=== PATIENT | female | born 1950 | race Caucasian/White ===

== ENCOUNTER 2016-11-29 19:24 | Emergency (ER) | payer OTHER, MEDICAID ==
[~2016-11-29] VITALS: Ht 152.4 cm; Wt 95.3 kg
[2016-11-29 19:35] VITALS: BP 115/67; PULSE 78; RESP 16; TEMP 97.5; O2SAT 98
--- NOTE | 2016-11-29 20:21 | NUR ---
Placed in room 07 . Placed on patient monitor, blood pressure machine and pulse oximeter. To gown for exam. Side rails up. Report given to SVEN Eason.
--- NOTE | 2016-11-29 21:00 | NUR ---
Dr. Alba at bedside examinig the pt.
--- NOTE | 2016-11-29 21:10 | NUR ---
Pt. to ER [facility] from home presented with chronic knee pain, c/o pain to right knee 2 at this time denies injury or trauma, states pain increases occasionally while in resting position, FROM of the affected extremity, no swelling redness or warmth noted
[2016-11-29 21:25] VITALS: BP 121/67; PULSE 78; RESP 15; TEMP 98; O2SAT 98
--- NOTE | 2016-11-29 21:25 | NUR ---
Patient given written and verbal discharge instructions and verbalizes understanding. ER MD Dr. Alba discussed with patient the results and treatment provided. Patient in stable condition. ID arm band removed. Rx of naprosyn given. Patient educated on pain management and to follow up with PMD. Pain Scale 0/10 Opportunity for questions provided and answered.
== END 2016-11-29 21:25 | disposition home or self-care (01) ==
LOC: SED 19:24
DX: S93.401A Sprain of unspecified ligament of right ankle, initial encounter (principal); E78.5 Hyperlipidemia, unspecified; Z88.6 Allergy status to analgesic agent; X58.XXXA Exposure to other specified factors, initial encounter; Y93.02 Activity, running; Y92.89 Other specified places as the place of occurrence of the external cause; Y99.8 Other external cause status
CPT/HCPCS: 73560-TC; 99284